=== PATIENT | male | born 1975 | race Caucasian/White ===

== ENCOUNTER 2022-06-26 05:48 | Emergency (ER) | payer BC, SELFPAY ==
[2022-06-26 06:10] VITALS: BP 162/110; PULSE 91; RESP 18; TEMP 36.6; O2SAT 97
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
[2022-06-26 06:50] LABS: Abs Immature Grans 0.06 10^3/uL (0.0-0.06); Absolute Basophil Count 0.06 10^3/uL (0.0-0.2); Absolute Eosinophil Count 0.11 10^3/uL (0.0-0.7); Absolute Lymphocyte Count 2.21 10^3/uL (1.2-3.4); Absolute Monocyte Count 1.08 10^3/uL (0.1-0.8); Absolute Neutrophil Count 7.75 10^3/uL (1.2-6.7); Basophils % 0.5; HCT 45.5 % (40.0-50.0); HGB 15.3 g/dL (13.5-17.5); Immature Grans % 0.5; Lymphocytes % 19.6; MCH 30.1 pg (27.0-33.0); MCHC 33.6 % (32.0-36.0); MCV 90 fL (80-95); MPV 9.4 fL (8.0-11.0); Monocytes % 9.6; Neutrophils % 68.8; Platelet Count 307 10^3/uL (130-400); RBC 5.08 10^6/uL (4.36-5.78); RDW 12.1 % (11.8-14.1); RDW-SD 39.8 fL; WBC 11.27 10^3/uL (4.4-10.8)
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
[2022-06-26 07:12] LABS: ALT 26 U/L (16-63); AST 20 U/L (15-37); Albumin 4.1 g/dL (3.4-5.0); Alkaline Phosphatase 68 U/L (46-116); Anion Gap 9.4 mmol/L (3-11); BUN 12 mg/dL (7-18); Bilirubin, Total 0.6 mg/dL (0.2-1.0); CO2 29.6 mmol/L (21.0-32.0); Calcium 9.5 mg/dL (8.5-10.1); Chloride 103 mmol/L (98-107); Estimated GFR 92.84 (mL/min/1.73m2); Glucose 109 mg/dL (74-106); Potassium 3.6 mmol/L (3.5-5.1); Sodium 142 mmol/L (136-145); Total Protein 7.2 g/dL (6.4-8.2)
[2022-06-26 07:17] LABS: ETHANOL BLOOD < 3.0 mg/dL (<10)
[2022-06-26 07:57] LABS: *AMPHETAMINES SCREEN URINE Negative (Negative); *BARBITURATES SCREEN URINE Negative (Negative); *BENZODIAZEPINES SCREEN URINE Negative (Negative); Cannabinoids THC Negative (Negative); Cocaine Screen,Urine Positive (Negative); METHADONE URINE SCREEN Negative (Negative); OPIATES URINE SCREEN Negative (Negative)
[2022-06-26 08:24] LABS: Tricyclic Antidepressants Negative (Negative)
[2022-06-26 09:08] VITALS: BP 162/110; PULSE 91; RESP 18; TEMP 36.6; O2SAT 97
--- NOTE | 2022-06-26 13:34 | NUR.NOTE ---
Nursing Note: Patient needed a ride back to [place] where he lives. Per Yanni Aguirre, retail support manager, permission to have [facility] pay for the ride back to his residence. [facility] was called and they agreed to take the patient back to his residence.
== END 2022-06-26 09:10 | disposition home or self-care (01) ==
PROVIDERS: Physician Assistant; Emergency Provider Emergency Medicine
DX: S09.93XA Unspecified injury of face, initial encounter (principal); F32.A Depression, unspecified; R45.851 Suicidal ideations; F41.9 Anxiety disorder, unspecified; Z23 Encounter for immunization; W22.01XA Walked into wall, initial encounter; Y92.29 Other specified public building as the place of occurrence of the external cause
CPT/HCPCS: 80053; 80307; 90471; 99285; 70450; 72125; 80320; 85025